=== PATIENT | female | born 1940 | race Caucasian/White ===

== ENCOUNTER → 2019-07-06 | Outpatient (CLI) | payer OTHER | END | disposition home or self-care (01) | LOC: LAB SHORT 10:16 → PLD 10:16 | DX: C44.622 Squamous cell carcinoma of skin of right upper limb, including shoulder (principal); C44.629 Squamous cell carcinoma of skin of left upper limb, including shoulder | CPT/HCPCS: 88305 ==

== ENCOUNTER → 2019-08-03 | Outpatient (CLI) | payer OTHER | END | disposition home or self-care (01) | LOC: LAB SHORT 12:58 → OLS 12:58 | DX: L57.8 Other skin changes due to chronic exposure to nonionizing radiation (principal) | CPT/HCPCS: 88305 ==

== ENCOUNTER 2023-06-08 00:45 | Inpatient (IN) | payer OTHER ==
[2023-06-08] VITALS (8 sets, daily range): BP systolic 117–222; BP diastolic 64–109
[~2023-06-08] VITALS: Ht 170.2 cm; Wt 104.2 kg
[2023-06-08] MEDS ORDERED: FUROSEMIDE40 MG PO (01:26)
[2023-06-08] MEDS ORDERED: EUTHYROX88 MC1 PO (01:26)
[2023-06-08] MEDS ORDERED: Potassium Chlo20 ME1 PO (01:26)
[2023-06-08] MEDS ORDERED: METO100ER PO (01:26)
[2023-06-08 01:42] LABS: BASOPHILS ABSOLUTE AUTO 0.07 K/mm3 (0.00-0.23); BASOPHILS PERCENT AUTO 0 % (0-2); EOSINOPHILS ABSOLUTE AUTO 0.01 K/mm3 (0.00-0.68); EOSINOPHILS PERCENT AUTO 0 % (0-6); Hematocrit 36.1 % (33.0-51.0); Hemoglobin 12.3 g/dL (11.5-16.0); IMMATURE GRAN ABSOLUTE AUTO 0.23 K/mm3 (0.00-0.10); IMMATURE GRAN PERCENT AUTO 1 % (0-1); LYMPHOCYTES ABSOLUTE AUTO 1.31 K/mm3 (0.84-5.20); LYMPHOCYTES PERCENT AUTO 8 % (21-46); MONOCYTES ABSOLUTE AUTO 1.76 K/mm3 (0.16-1.47); MONOCYTES PERCENT AUTO 11 % (4-13); Mean Corpuscular HGB 33.5 pg (26.0-34.0); Mean Corpuscular HGB Conc 34.1 g/dL (31.5-36.5); Mean Corpuscular Volume 98 fL (80-100); Mean Platelet Volume 10.7 fL (9.1-12.4); NEUTROPHILS ABSOLUTE AUTO 12.68 K/mm3 (1.96-9.15); NEUTROPHILS PERCENT AUTO 79 % (41-73); Platelet Count 198 K/mm3 (150-400); RDW Coefficient Variation 12.2 % (11.7-14.2); RDW Standard Deviation 44.2 fL (35.1-46.3); Red Blood Cell Count 3.67 M/mm3 (3.80-5.20); White Blood Cell Count 16.06 K/mm3 (4.00-11.30)
[2023-06-08 01:51] LABS: Albumin, Blood 2.7 g/dL (3.4-5.0); Albumin/Globulin Ratio 0.7 (0.8-1.8); Bun/Creatinine Ratio 19.1 (12.0-20.0); Calcium, Blood 8.3 mg/dL (8.5-10.1); Creatinine, Blood 0.68 mg/dL (0.40-1.00); Potassium, Blood 3.7 mmol/L (3.5-5.5); Total Protein, Blood 6.7 g/dL (6.4-8.2)
[2023-06-08 02:36] LABS: International Normalized Ratio 1.08; Prothrombin Time Results 11.3 Sec (9.7-11.5)
[2023-06-08] MEDS ORDERED: ELIQUIS5 M2 PO (02:54)
[2023-06-08] MEDS ORDERED: OMEP20ER PO (02:54)
--- NOTE | 2023-06-08 07:24 | NUR ---
PT VSS T/O NIGHT. PEDAL PULSES AND CAP REFILL WNL, PT DENIED N/T. PT PAINFUL W/MVMT, REP PAIN VITO AT REST, MEDICATED PER EMAR. PT NPO SINCE ARRIVING TO FLOOR, AWAITING ORTHO CONSULT. IVF CONT PER ORDERS. PUREWICK IN PLACE. PT USING CALL LIGHT FOR ASSISTANCE.
--- NOTE | 2023-06-08 10:32 | NUR ---
Pt. is awake in bed and welcomes my visit. Spouse is present. Pt. is pleasant but unsettled by significant pain, and concerns about waiting till the next day for a procedure. Listen with empathy and a calming presence. Normalize the Pt. experience as rapport is established. Pt. verbalizes that she is a woman of rich. Prayed with Pt. and spouse. Both verbalized gratitude for the spiritual care visit and welcomed this cable coverer to visit again.
--- NOTE | 2023-06-08 15:07 | NUR ---
HTN & PAIN CALLED & SPOKE w/ DR GILLETTE PT's BP HAS BEEN HIGH, EVEN AFTER MEDICATED FOR PAIN. ALSO DICUSSED PAIN MANAGEMENT PT IS STILL PAINFUL & HTN POST PAIN MEDS.
--- NOTE | 2023-06-08 18:09 | NUR ---
SHIFT SUMMARY UNFORTUNATLY PT's SURGERY PLANNED FOR TOMORROW DUE TO ELIQUIS USE. WAS PAINFUL BUT AFTER ADDING TRAMADOL IS FEELING MUCH MORE COMFORTABLE. ANXIOUS & WISHES SURGERY WOULD HAVE HAPPENED TODAY. PPP. R LEG SLIGHTLY EXT ROTATED.
[2023-06-09] VITALS (23 sets, daily range): BP systolic 86–120; BP diastolic 42–771
--- NOTE | 2023-06-09 05:35 | NUR ---
SHIFT SUMMARY VSS. TELE READS AFIB 101. PT HAS BEEN NPO SINCE 0000 IN ANTICIPATION FOR SURGERY. SURGICAL WIPEDOWN COMPLETE. PUREWICK REMAINS IN PLACE, 75 ML OUTPUT AND 90ML BLADDER SCAN. HOSPITALIST NOTIFIED, ORDERED TO CONTINUE IV FLUIDS. SENSATION AND CIRCULATION REMAINS INTACT IN RLE, PT CAN WIGGLE TOES ON COMMAND. PT APPEARS TO BECOME PANICKED WHEN PAIN INCREASES, MEDICATED FOR PAIN WTIH PRN'S AND ICE THERAPY. REPOSITIONED TOLLERATED. NO ACUTE EVENTS. NO IGNITION SOURCE NOTED
--- NOTE | 2023-06-09 11:55 | NUR ---
TO DAY SURGERY VIA HOSPITAL BED
--- NOTE | 2023-06-09 13:06 | NUR ---
History, Chart, Medications and Allergies reviewed before start of procedure. Lungs clear T/O to Auscultation. Patient confirms NPO status and agrees with scheduled surgery. Pre-Op teaching done. Pt verbalizes understanding. Surgical site prepped with 2% Chlorhexidine cloth wipe.
--- NOTE | 2023-06-09 16:40 | NUR ---
POST OP ARRIVES TO ROOM IN HOSPT BED. EYES WIDE EPEN BUT SMALL PUPILS. PEERL. NODS YES & NO TO ?'s BUT DOESN'T SPEAK. RECOGNIZES & SMILES; SMILE EVEN. DENIES PAIN OR NAUSEA. PPP & WIGGLES TOES. NO LONGER EXT ROTATED. R HIP w/ PRINEO DRSG OVER. NO DRNG NOTED. LUNGS CLEAR BUT DIM IN BASES. ENCOURAGED TO DEEP BREATHE PT IS ON OXYMYZER 6L. TELE REPLACED: AFIB @ 96 PER GAMING WORKER.
[2023-06-10 04:16] LABS: BASOPHILS ABSOLUTE AUTO 0.04 K/mm3 (0.00-0.23); BASOPHILS PERCENT AUTO 0 % (0-2); EOSINOPHILS ABSOLUTE AUTO 0.21 K/mm3 (0.00-0.68); EOSINOPHILS PERCENT AUTO 2 % (0-6); Hematocrit 33.9 % (33.0-51.0); Hemoglobin 11.1 g/dL (11.5-16.0); IMMATURE GRAN ABSOLUTE AUTO 0.29 K/mm3 (0.00-0.10); IMMATURE GRAN PERCENT AUTO 2 % (0-1); LYMPHOCYTES ABSOLUTE AUTO 2.55 K/mm3 (0.84-5.20); LYMPHOCYTES PERCENT AUTO 19 % (21-46); MONOCYTES ABSOLUTE AUTO 1.01 K/mm3 (0.16-1.47); MONOCYTES PERCENT AUTO 8 % (4-13); Mean Corpuscular HGB 32.8 pg (26.0-34.0); Mean Corpuscular HGB Conc 32.7 g/dL (31.5-36.5); Mean Corpuscular Volume 100 fL (80-100); Mean Platelet Volume 11.7 fL (9.1-12.4); NEUTROPHILS ABSOLUTE AUTO 9.05 K/mm3 (1.96-9.15); NEUTROPHILS PERCENT AUTO 69 % (41-73); Platelet Count 201 K/mm3 (150-400); RDW Coefficient Variation 12.9 % (11.7-14.2); RDW Standard Deviation 47.5 fL (35.1-46.3); Red Blood Cell Count 3.38 M/mm3 (3.80-5.20); White Blood Cell Count 13.15 K/mm3 (4.00-11.30)
[2023-06-10 04:33] LABS: Albumin, Blood 2.3 g/dL (3.4-5.0); Anion Gap 8 mmol/L (6-16); Blood Urea Nitrogen 41 mg/dL (8-24); Bun/Creatinine Ratio 34.5 (12.0-20.0); CO2, Blood 23 mmol/L (21-32); Calcium, Blood 8.3 mg/dL (8.5-10.1); Chloride, Blood 103 mmol/L (98-108); Creatinine, Blood 1.19 mg/dL (0.40-1.00); Glomerular Filtration Rate 45 (60-); Glucose, Blood 124 mg/dL (70-99); Phosphorus, Blood 3.9 mg/dL (2.5-4.9); Potassium, Blood 4.4 mmol/L (3.5-5.5); Sodium, Blood 134 mmol/L (136-145)
[2023-06-10 06:31] VITALS: BP 117/67
[2023-06-10 07:32] VITALS: BP 96/63
--- NOTE | 2023-06-10 07:35 | NUR ---
POD 1 S/P R CHIKIS HIP. PT VSS T/O NIGHT. HR AFIB TRENDING 90-LOW 100'S, PT DENIED CP/PRESSURE. SATS >90% ON RA. INCISION CDI, CAP REFILL WNL. PT REP PAIN MINIMAL, MGD PER EMAR AND REPOSITIONING W/REP RELIEF. PT VITO PO, DENIED N/V, PUREWICK IN PLACE DRAINING DARK YELLOW URINE. NO IGNITION RISKS NOTIFIED. PLAN TO MOBILIZE W/PT TODAY.
[2023-06-10 08:37] VITALS: BP 131/77
[2023-06-10 14:37] VITALS: BP 100/67
[2023-06-10 14:39] VITALS: BP 91/55
--- NOTE | 2023-06-10 16:27 | NUR ---
SHIFT SUMMARY POD 1 R CHIKIS HIP. PT FOLLOWS DIRECTIONS WELL BUT IS TANGENTEL WHILE TALKING AND WILL QUICKLY CHANGE SUBJECT. AA0X4 BUT WILL CHANGE SUBJECT BEFORE ANSWERING SOME ORIENTATION QUESTIONS. HR REMAINS AFIB IN 110'S BP REMAINS LOW BUT SHE IS ASYMPTOMATIC. PAINFUL WITH ATTEMPTING TO MOBILIZE WITH PHYSICAL THERAPY. REFUSED OCCUPATIONAL THERAPY TODAY. PLAN IS TO CONTINUE ENCOURAGING MOBILIZATION AND MANAGE PAIN.
--- NOTE | 2023-06-10 18:24 | NUR ---
IGNITION RISK ATTEMPTED TO EDUCATE ON IGNITION RISK, UNABLE TO CONTINUE CONVERSATION. NO SOURCES COULD BE IDENTIFIED BY THIS RN.
[2023-06-10 19:12] VITALS: BP 114/84
[2023-06-11 03:27] VITALS: BP 129/80
[2023-06-11 04:43] LABS: BASOPHILS ABSOLUTE AUTO 0.04 K/mm3 (0.00-0.23); BASOPHILS PERCENT AUTO 0 % (0-2); EOSINOPHILS ABSOLUTE AUTO 0.09 K/mm3 (0.00-0.68); EOSINOPHILS PERCENT AUTO 1 % (0-6); Hematocrit 30.8 % (33.0-51.0); Hemoglobin 10.4 g/dL (11.5-16.0); IMMATURE GRAN ABSOLUTE AUTO 0.33 K/mm3 (0.00-0.10); IMMATURE GRAN PERCENT AUTO 3 % (0-1); LYMPHOCYTES ABSOLUTE AUTO 2.81 K/mm3 (0.84-5.20); LYMPHOCYTES PERCENT AUTO 22 % (21-46); MONOCYTES ABSOLUTE AUTO 1.01 K/mm3 (0.16-1.47); MONOCYTES PERCENT AUTO 8 % (4-13); Mean Corpuscular HGB 33.2 pg (26.0-34.0); Mean Corpuscular HGB Conc 33.8 g/dL (31.5-36.5); Mean Corpuscular Volume 98 fL (80-100); Mean Platelet Volume 11.5 fL (9.1-12.4); NEUTROPHILS ABSOLUTE AUTO 8.55 K/mm3 (1.96-9.15); NEUTROPHILS PERCENT AUTO 67 % (41-73); Platelet Count 221 K/mm3 (150-400); RDW Standard Deviation 46.5 fL (35.1-46.3); Red Blood Cell Count 3.13 M/mm3 (3.80-5.20); White Blood Cell Count 12.83 K/mm3 (4.00-11.30)
--- NOTE | 2023-06-11 04:43 | NUR ---
EOS NOTE: PATIENT A/0X3-4, POSSIBLE SUNDOWNING AND MILD CONFUSION AT THE BEGINNING OF THE NIGHT. EXPRESSED MILD DISCOMFORT TO RIGHT HIP WHEN TURNING. PATIENT WAS PLEASANT, CONFUSION R/T PLACE AND OCCASIONALLY SITUATION. RESTED QUIETLY MOST OF THE NIGHT, REFUSED PAIN MEDICATION. PUREWICK IN PLACE. MOSTLY CONTINENT. VSS
[2023-06-11 04:57] LABS: Bun/Creatinine Ratio 55.6 (12.0-20.0); Calcium, Blood 8.4 mg/dL (8.5-10.1); Creatinine, Blood 0.9 mg/dL (0.40-1.00); Potassium, Blood 4.6 mmol/L (3.5-5.5)
[2023-06-11 07:18] VITALS: BP 138/84
--- NOTE | 2023-06-11 12:16 | NUR ---
Pt. is awake and sitting in a recliner when she welcomes my visit. Pt. verbalizes her anticiaption of her transfer to [facility]. Pt. is unsettled about [facility] so this cans vacuum tester listened with empathy and normalized the Pt. experience. Pt. had questions about local mortuaries, as she verbalized feeling she had been exposed to a scam. Pt. verbalized a desire to know what the local establishments charge. This cans vacuum tester provided a pricelist (current as of April 2023). Prayed with Pt. Pt. verbalized gratitude for the spiritual care visit and the home list.
[2023-06-11 12:32] LABS: SARS-Cov-2 (COVID-19) PCR, MMC NEGATIVE (NEGATIVE)
--- NOTE | 2023-06-11 16:17 | NUR ---
DISCHARGE PT DISCHARGED TO AT APROX 1530. REPORT GIVEN AT 1620. BELONGINGS SENT WITH PT. HARD COPY OF TRAMADOL SCRIPT IN ORDER ENVELOPE
== END 2023-06-11 15:30 | DRG 522 ==
LOC: ER 00:45 → SURS 02:00
PROVIDERS: Family Medicine; Internal Medicine; Orthopaedic Surgery; Student in an Organized Health Care Education/Training Program; ADMIT Internal Medicine
PROC: 0SRR0JA Replacement of Right Hip Joint, Femoral Surface with Synthetic Substitute, Uncemented, Open Approach (ICD-10-PCS; principal; 2023-06-09 12:00)
DX: S72.141A Displaced intertrochanteric fracture of right femur, initial encounter for closed fracture (principal); N17.9 Acute kidney failure, unspecified; I48.20 Chronic atrial fibrillation, unspecified; E87.1 Hypo-osmolality and hyponatremia; W18.30XA Fall on same level, unspecified, initial encounter; I10 Essential (primary) hypertension; D72.829 Elevated white blood cell count, unspecified; E03.9 Hypothyroidism, unspecified; E66.01 Morbid (severe) obesity due to excess calories; Z20.822 Contact with and (suspected) exposure to COVID-19; M85.80 Other specified disorders of bone density and structure, unspecified site; Z98.890 Other specified postprocedural states; Z90.710 Acquired absence of both cervix and uterus; Z68.34 Body mass index [BMI] 34.0-34.9, adult; Z88.5 Allergy status to narcotic agent; Z79.01 Long term (current) use of anticoagulants; Z79.890 Hormone replacement therapy; Z79.899 Other long term (current) drug therapy; Z85.41 Personal history of malignant neoplasm of cervix uteri
CPT/HCPCS: 36415; 72170; 73502; 80048; 80053; 80069; 82947; 83880; 85025; 85610; 93005; 93010; 94760; 96374; 96375; 97110; 97116; 97163; 97166; 97530; 99285-25; A9270; C1713; C1776; J0171; J0690; J0735; J1885; J2371; J2405; J2795; J3010; J7030; J7120; U0002

== ENCOUNTER → 2025-06-27 | Outpatient (CLI) | payer OTHER ==
[~2025-06-27] MED LIST: ELIQUIS5 M2 PO; EUTHYROX88 MC1 PO; FUROSEMIDE40 MG PO; METO100ER PO; OMEP20ER PO; Potassium Chlo20 ME1 PO
[2025-06-27 18:56] LABS: BASOPHILS ABSOLUTE AUTO 0.05 K/mm3 (0.00-0.23); BASOPHILS PERCENT AUTO 1 % (0-2); EOSINOPHILS ABSOLUTE AUTO 0.08 K/mm3 (0.00-0.68); EOSINOPHILS PERCENT AUTO 2 % (0-6); Hematocrit 41.7 % (33.0-51.0); Hemoglobin 13.5 g/dL (11.5-16.0); IMMATURE GRAN ABSOLUTE AUTO 0.01 K/mm3 (0.00-0.10); IMMATURE GRAN PERCENT AUTO 0 % (0-1); LYMPHOCYTES ABSOLUTE AUTO 1.41 K/mm3 (0.84-5.20); LYMPHOCYTES PERCENT AUTO 27 % (21-46); MONOCYTES ABSOLUTE AUTO 0.43 K/mm3 (0.16-1.47); MONOCYTES PERCENT AUTO 8 % (4-13); Mean Corpuscular HGB Conc 32.4 g/dL (31.5-36.5); Mean Corpuscular Volume 102 fL (80-100); NEUTROPHILS ABSOLUTE AUTO 3.26 K/mm3 (1.96-9.15); NEUTROPHILS PERCENT AUTO 62 % (41-73); NRBC ABSOLUTE 0.00 K/mm3 (0.00-0.02); NRBC Auto 0.0 /100 WBC (0.0-0.2); Platelet Count 168 K/mm3 (150-400); RDW Coefficient Variation 12.3 % (11.7-14.2); RDW Standard Deviation 46.8 fL (35.1-46.3)
[2025-06-27 19:45] LABS: Alanine Aminotransfer (ALT/SGP 17.0 U/L (12-78); Albumin, Blood 3.8 g/dL (3.4-5.0); Albumin/Globulin Ratio 1.2 (0.8-1.8); Anion Gap 7.0 mmol/L (3-11); Aspartate Aminotrans (AST/SGOT 17.0 U/L (12-37); Bilirubin, Total 0.6 mg/dL (0.1-1.0); Blood Urea Nitrogen 21.0 mg/dL (8-24); CO2, Blood 29.0 mmol/L (21-32); Calcium, Blood 8.9 mg/dL (8.5-10.1); Chloride, Blood 107.0 mmol/L (98-108); Creatinine, Blood 0.84 mg/dL (0.40-1.00); Globulin, Blood 3.3 g/dL (2.2-4.0); Glucose, Blood 97.0 mg/dL (70-99); Potassium, Blood 4.4 mmol/L (3.5-5.5); Sodium, Blood 139.0 mmol/L (136-145); Thyroid Stimulating Hormone 3.8 uIU/mL (0.360-4.800); Total Protein, Blood 7.1 g/dL (6.4-8.2)
== END ==
LOC: LAB 16:17 → LAB SHORT 16:17
PROVIDERS: Nurse Practitioner Family
DX: E03.9 Hypothyroidism, unspecified (principal); I11.0 Hypertensive heart disease with heart failure; I50.30 Unspecified diastolic (congestive) heart failure
CPT/HCPCS: 80053; 84439; 84443; 85025